=== PATIENT | male | born 1985 | race Caucasian/White ===

== ENCOUNTER 2021-08-25 13:05 | Outpatient (CLI) | payer OTHER, SELFPAY ==
[2021-08-25 14:31] LABS: #Basophils 0.1 10x3/uL (0.0-0.2); #Eosinphils 0.4 10x3/uL (0.0-0.5); #Monocytes 0.7 10x3/uL (0.0-1.1); #Neutrophils 3.7 10x3/uL (1.5-8.4); %Eosinophils 6.1 % (0.0-6.0); %Lymphocytes 22.3 % (18.0-47.0); %Monocytes 10.6 % (0.0-10.0); %Neutrophils 59.8 % (40.0-75.0); Hemoglobin 14.8 g/dL (13.5-17.5); Mean Corpuscular HGB CONC 33.8 g/dL (32.0-36.0); Mean Corpuscular Hemoglobin 31.6 pg (27.0-33.0); Mean Corpuscular Volume 93.6 fl (81.2-95.1); Mean Platelet Volume 9.6 fl (7.4-10.4); Platelet Count 276 10x3/uL (150-450); RBC Distribution Width 12.7 % (11.5-14.5); Red Blood Cell (RBC) Count 4.68 10x6/uL (4.32-5.72); White Blood Cell (WBC) Count 6.2 10x3/uL (3.5-10.5)
[2021-08-25 14:36] LABS: Anion Gap 15 mmol/L (10-20); BUN (Urea Nitrogen) 24 mg/dL (8.9-20.6); Calc. Creatinine Clearance 0 mL/min (70-130); Calcium 10.2 mg/dL (7.8-10.44); Carbon Dioxide 23 mmol/L (22-29); Chloride 108 mmol/L (98-107); Glucose 101 mg/dL (70-105); Potassium 4.5 mmol/L (3.5-5.1); Sodium 141 mmol/L (136-145)
[2021-08-26 16:09] LABS: SARS-CoV-2 PCR by NAA Not Detected (NotDetected)
== END 2021-08-25 13:06 | disposition home or self-care (01) ==
LOC: LABBT 13:05
PROVIDERS: ATTEND Surgery
DX: Z01.812 Encounter for preprocedural laboratory examination (principal); K64.9 Unspecified hemorrhoids; Z20.822 Contact with and (suspected) exposure to COVID-19
CPT/HCPCS: 80048; 85025; U0003; U0005

== ENCOUNTER 2021-08-28 10:49 | Day surgery (SDC) | payer OTHER ==
[2021-08-25 10:35] VITALS: BMI 27.5
[2021-08-28] MEDS ORDERED: EPINEPHrine 1 MG/ML AMP ONE (12:07)
[2021-08-28] MEDS ORDERED: Bupivacaine 0.25% 10 ML VIAL ONE (12:07)
[2021-08-28] MEDS ORDERED: Midazolam HCl 2 mg/2 ml Vial ONE ×2 (12:07→12:16)
[2021-08-28] MEDS ORDERED: Lidocaine 2% Jelly 5 ML TUBE ONE (12:07)
[2021-08-28] MEDS ORDERED: Lidocaine 1% w/Epinephrine 1:100K 20 ML VIAL ONE (12:08)
[2021-08-28] MEDS ORDERED: Fentanyl 100 MCG/2 ML VIAL ONE ×2 (12:16→12:59)
[2021-08-28] MEDS ORDERED: ceFAZolin (BATCH) 2 GM/100 ML BAG ONE (12:18)
[2021-08-28] MEDS ORDERED: cefOXitin 2 GM VIAL ONE (12:19)
[2021-08-28] MEDS ORDERED: Sodium Chloride 0.9% 100 ML ONE (12:19)
[2021-08-28] MEDS ORDERED: Dexamethasone 20 MG/5 ML VIAL ONE (12:27)
[2021-08-28] MEDS ORDERED: Glycopyrrolate 0.2 MG/ML 5 ML SYRINGE ONE (12:27)
[2021-08-28] MEDS ORDERED: Lidocaine 1% PF 5 ML VIAL ONE (12:27)
[2021-08-28] MEDS ORDERED: ePHEDrine 50 MG/ML VIAL ONE (12:27)
[2021-08-28] MEDS ORDERED: Rocuronium Bromide 10 MG/ML (10ML VIAL) ONE (12:27)
[2021-08-28] MEDS ORDERED: PHENYLEPHRINE-NS 100 MCG/ML 10 ML SYRINGE ONE (12:27)
[2021-08-28] MEDS ORDERED: Ondansetron PF 4 MG/2 ML Vial ONE (12:27)
[2021-08-28] MEDS ORDERED: Ketorolac Tromethamine 30 MG/ML VIAL ONE (12:27)
[2021-08-28] MEDS ORDERED: PROPOFOL 200 MG/20 ML VIAL ONE (12:27)
== END 2021-08-28 14:35 | disposition home or self-care (01) ==
LOC: SDC 10:49
PROVIDERS: ATTEND Surgery
PROC: 06BY3ZC Excision of Hemorrhoidal Plexus, Percutaneous Approach (ICD-10-PCS; principal; 2021-08-28)
DX: K64.8 Other hemorrhoids (principal); F17.210 Nicotine dependence, cigarettes, uncomplicated; Z86.61 Personal history of infections of the central nervous system; Z79.899 Other long term (current) drug therapy
CPT/HCPCS: 88304; J0171; J0690; J0694; J1100; J1885; J2250; J2405; J2704; J3010; J3490; S0020